=== PATIENT | female | born 1980 | race Caucasian/White ===

== ENCOUNTER 2019-11-14 06:03 | Observation (INO) ==
[2019-11-14 06:37] LABS: Basophils # (auto) 0.02 K/uL (0-0.2); Basophils % (auto) 0.2 %; Eosinophils # (auto) 0.06 K/uL (0-0.5); Eosinophils % (auto) 0.5 %; Hematocrit (blood only) 44.5 % (37-47); Hemoglobin 14.8 g/dL (12.0-16.0); Immature Granulocytes # (auto) 0.03 K/uL (0.00-0.02); Immature Granulocytes % (auto) 0.3 %; Lymphocytes # (auto) 1.02 K/uL (1.2-3.4); Mean Corpuscular Hemoglobin 29.7 pg (25-34); Mean Corpuscular Hgb Conc 33.3 g/dL (32-36); Mean Corpuscular Volume 89.4 fL (80-100); Mean Platelet Volume 8.9 fL (7.4-10.4); Monocytes # (auto) 1.22 K/uL (0.11-0.59); Monocytes % (auto) 10.8 %; Neutrophils # (auto) 8.94 K/uL (1.4-6.5); Neutrophils % (auto) 79.2 %; Platelet Count 207 K/uL (130-400); RDW Standard Deviation 41.9 fL (36.4-46.3); Red Blood Count 4.98 M/uL (4.2-5.4); White Blood Count 11.29 K/uL (4.8-10.8)
[2019-11-14] MEDS ORDERED: ONDANSETRON INJ 2 MG/ML 2 ML VIAL IV STA (06:37)
[2019-11-14] MEDS ORDERED: ACETAMINOPHEN 1,000 MG/100 ML VIAL IV STA (06:37)
[2019-11-14] MEDS ORDERED: HYDROmorphone INJ 0.5 MG/0.5 ML SYR IV PRN (06:37)
[2019-11-14 06:41] LABS: Appearance Urine Cloudy (Clear); Bacteria Urine Automated Negative (Negative); Blood Urine 3+ (Negative); Epithelial Cell Urine Auto >30 /lpf (0-5); Glucose Urine UA Negative (Negative); Ketones Urine 1+ (Negative); Leukocyte Esterase Urine Trace (Negative); Nitrite Urine Negative (Negative); Protein Urine Trace (Negative); RBC Urine Automated >30 /hpf (0-4); Specific Gravity Urine 1.033 (1.000-1.030); Urobilinogen Urine Negative (Negative); pH Urine 5.5 (4.5-7.5)
--- NOTE | 2019-11-14 06:47 | Emergency Department Note ---
History of Present Illness General Chief complaint: Abdominal Pain Stated complaint: right side flank/abd pain Time Seen by Provider: 11/14/19 06:32 Source: patient, RN notes reviewed and old records reviewed Mode of arrival: ambulatory Limitations: no limitations History of Present Illness Provider complaint: Right lower quadrant abd pain Onset (ago): day(s) 3 Location: abdomen Radiation: flank Severity: moderate Pain Consistency: + colicky Maximum Pain Intensity: 7 Current Pain Intensity: 7 Quality: + sharp Relieved By: + immobilization Exacerbated By: + movement Associated symptoms: + nausea/vomiting; no chest pain, no cough, no fever/chills, no headaches and no shortness of breath Treatments prior to arrival: none This is a 39-year-old female who presents emergency department complaint right lower quadrant abdominal pain that has been ongoing for the past 3 days. The patient reports she has not taken anything for the pain. She reports that the pain radiates into her right flank. She denies any chest pain or shortness of breath. The patient reports movement makes the pain much worse. She reports that eating does not do anything to the pain including eating an hour later. She describes the pain as sharp. She has never had abdominal surgery before. She is currently on her period and denies being . Home Medications Home Medications Medication Instructions Recorded Confirmed Type Lactobacillus 1 cap PO UD 08/24/19 11/14/19 History acidophilus-Bifidobac.animalis 31 billion cell capsule ascorbic acid (vitamin C) 500 mg 500 mg PO DAILY 08/24/19 11/14/19 History tablet cholecalciferol (vitamin D3) 25 1,000 unit PO DAILY 08/24/19 11/14/19 History mcg (1,000 unit) tablet citalopram 10 mg tablet 10 mg PO DAILY 08/24/19 11/14/19 History ferrous gluconate 240 mg (27 mg 240 mg PO UD 08/24/19 11/14/19 History iron) tablet Allergies Allergy/AdvReac Type Severity Reaction Status Date / Time Penicillins Allergy Intermediate RASH Verified 11/14/19 06:24 Past Med/Surg History Surgical History H/O dilation and curettage H/O oral surgery Family History Aunt Breast cancer maternal Other Dyslipidemia Hypertension Denies family history of Ovarian cancer Colorectal cancer Social History Feels Safe at Home: Yes Smoking Status: Never smoker Hx Alcohol Use: Yes Physical Activity Frequency: 3-4 Times per Week Review of Systems A total of 10 systems reviewed and were otherwise negative Physical Exam Vital Signs Vital Signs - 24 hr 11/14/19 06:07 11/14/19 07:02 11/14/19 07:49 Temperature 37.4 C Temperature Source Oral Pulse Rate 98 H Pulse Rate [Right Finger] 72 66 Respiratory Rate 18 16 18 Respiratory Effort / Characteristics Non-Labored Spontaneous Non-Labored Spontaneous Respiratory Depth Normal Normal Normal Respiratory Pattern Regular Blood Pressure 114/81 Blood Pressure [Right Arm] 129/70 112/70 Blood Pressure Mean 92 Blood Pressure Mean [Right Arm] 89 84 Blood Pressure Position [Right Arm] Lying Lying Pulse Oximetry 96 98 97 Oxygen Delivery Method Room Air Room Air Room Air Sepsis Recent Fever Within 48 Hours No Sepsis Action Taken by Nursing No Action Required 11/14/19 09:00 11/14/19 09:58 11/14/19 10:07 Temperature 37 C Temperature Source Oral Pulse Rate Pulse Rate [Right Finger] 75 80 Respiratory Rate 18 18 Respiratory Effort / Characteristics Non-Labored Non-Labored Spontaneous Respiratory Depth Normal Normal Respiratory Pattern Regular Blood Pressure Blood Pressure [Right Arm] 122/73 110/71 Blood Pressure Mean Blood Pressure Mean [Right Arm] 89 84 Blood Pressure Position [Right Arm] Lying Lying Pulse Oximetry 97 98 Oxygen Delivery Method Room Air Room Air Sepsis Recent Fever Within 48 Hours Sepsis Action Taken by Nursing VITAL SIGNS - Vital signs and nursing notes were reviewed. GENERAL - 39-year-old female appearing stated age who is in no acute distress. Communicates well with provider and answers questions appropriately. SKIN - Without rashes. HEAD - NC/AT. EYES - PERRL with EOMI bilaterally. Sclera anicteric. Palpebral conjunctiva pink and moist with no injection noted. EARS - No deformities of external structures noted on gross examination bila terally. No pain elicited with palpation of the tragus bilaterally. External auditory canals without discharge or otorrhea. Tympanic membranes pearly roberts without retraction or bulging. No fluid or purulent material visualized behind the TM. Handle of malleus, umbo, cone of light, pars tensa/flaccid all easily visualized. NOSE - Midline and without cyanosis. No epistaxis or purulent drainage noted. Septum midline without deviation or septal hematoma noted. MOUTH/OROPHARYNX - Without perioral cyanosis. Buccal mucosa pink and moist and without leukoplakia. Tongue midline with equal elevation of palate bilaterally. No tonsillar hypertrophy, erythema, or exudates noted. dentition noted. NECK - Neck with FROM. Supple to palpation. lymphadenopathy noted. No nuchal rigidity. LUNGS - Chest wall symmetric without accessory muscle use, intercostals retractions, or central cyanosis. Normal vesicular breath sounds CTA B/L. No wheezes, rales, or rhonchi appreciated. CARDIAC - RRR with S1/S2. No murmur, rubs, or gallops appreciated. ABDOMEN - Abdominal contour without pulsations or visible masses. BS normoactive all four quadrants. + tenderness, + guarding, + rebound RLQ, No palpable masses, hepatosplenomegaly, or ascites noted. EXTREMITIES - No clubbing or peripheral cyanosis. No pretibial edema present. +3/5 radial, posterior tibial, and dorsalis pedis pulses palpated throughout. +5/5 strength noted in UE/LE bilaterally. NEUROLOGIC - Cranial nerves II through XII grossly intact. Sensory intact to light touch throughout. Patellar reflexes +2/4. PSYCH - A&Ox3 and cooperates fully with examiner. Pt is very pleasant and interacts well with examiner. Course Administered Medications Hydromorphone HCl (Dilaudid) 0.5 mg IV Q15M PRN PRN Reason: Pain Stop: 11/28/19 06:36 Last Admin: 11/14/19 06:46 Dose: 0.5 mg Documented by: [id number] Ioversol (Optiray 320 100ml) 120 ml IV ONCE PRN PRN Reason: Interaction Checking Stop: 11/18/19 07:19 Last Admin: 11/14/19 07:20 Dose: 120 ml Documented by: [id number] Discontinued Medications Acetaminophen (Ofirmev) 1,000 mg in 100 mls @ 400 mls/hr IV NOW STA Stop: 11/14/19 06:51 Last Infusion: 11/14/19 07:11 Dose: 0 mls/hr Documented by: [id number] Admin: 11/14/19 06:46 Dose: 400 mls/hr Documented by: [id number] Cefoxitin Sodium (Mefoxin) 2,000 mg in 60 mls @ 100 mls/hr IV NOW STA Stop: 11/14/19 08:16 Last Infusion: 11/14/19 08:36 Dose: 0 mls/hr Documented by: [id number] Admin: 11/14/19 07:49 Dose: 100 mls/hr Documented by: [id number] Ondansetron HCl (Zofran) 4 mg IV NOW STA Stop: 11/14/19 06:38 Last Admin: 11/14/19 06:45 Dose: 4 mg Documented by: [id number] Medical Decision Making Differential Diagnosis Appendicitis, ovarian cyst, ovarian torsion, ectopic , TOA, PID, infections, diverticulitis, UTI, obstruction, mesenteric ischemia, aortic pathology, inflammatory bowel disease, renal colic, PUD, pancreatitis, biliary pathology, hernia, volvulus, constipation, as well as other pathologies. Medical Records Attestation: I reviewed the patient's medical records. Home Medications Current Medication List: was personally reviewed by me Laboratory Data Attestation: I reviewed the patient's lab results. Result diagrams: 11/14/19 06:28 11/14/19 06:28 Lab Results 11/14/19 11/14/19 11/14/19 Range/Units 06:28 06:28 06:29 WBC 11.29 H (4.8-10.8) K/uL RBC 4.98 (4.2-5.4) M/uL Hgb 14.8 (12.0-16.0) g/dL Hct 44.5 (37-47) % MCV 89.4 (80-100) fL MCH 29.7 (25-34) pg MCHC 33.3 (32-36) g/dL RDW Std Deviation 41.9 (36.4-46.3) fL RDW Coeff of Nava 13.0 (11.5-14.5) % Plt Count 207 (130-400) K/uL MPV 8.9 (7.4-10.4) fL Immature Gran % (Auto) 0.3 % Neut % (Auto) 79.2 % Lymph % (Auto) 9.0 % Hart % (Auto) 10.8 % Eos % (Auto) 0.5 % Baso % (Auto) 0.2 % Immature Gran # (Auto) 0.03 H (0.00-0.02) K/uL Neut # (Auto) 8.94 H (1.4-6.5) K/uL Lymph # (Auto) 1.02 L (1.2-3.4) K/uL Hart # (Auto) 1.22 H (0.11-0.59) K/uL Eos # (Auto) 0.06 (0-0.5) K/uL Baso # (Auto) 0.02 (0-0.2) K/uL Sodium 138 (136-145) mmol/L Potassium 3.5 (3.5-5.1) mmol/L Chloride 105 (98-107) mmol/L Carbon Dioxide 26 (21-32) mmol/L Anion Gap 7.0 (3-11) BUN 13 (7-18) mg/dl Creatinine 1.00 (0.6-1.2) mg/dl Est Cr Clr Drug Dosing 86.6 ml/min Est GFR ( Amer) 82.8 Est GFR (Non-Af Amer) 71.4 BUN/Creatinine Ratio 13.0 (10-20) Glucose 93 (70-99) mg/dl Calcium 8.8 (8.5-10.1) mg/dl Total Bilirubin 1.9 H (0.2-1) mg/dl AST 14 L (15-37) U/L ALT 22 (12-78) U/L Alkaline Phosphatase 79 (45-117) U/L Total Protein 7.2 (6.4-8.2) gm/dl Albumin 3.6 (3.4-5.0) gm/dl Globulin 3.6 (2.5-4.0) gm/dl Albumin/Globulin Ratio 1.0 (0.9-2) Lipase 106 (73-393) U/L Urine Color Ryann Urine Appearance Cloudy A (Clear) Urine pH 5.5 (4.5-7.5) Ur Specific [place] 1.033 H (1.000-1.030) Urine Protein Trace H (Negative) Urine Glucose (UA) Negative (Negative) Urine Ketones 1+ H (Negative) Urine Blood 3+ H (Negative) Urine Nitrite Negative (Negative) Urine Bilirubin Negative (Negative) Urine Urobilinogen Negative (Negative) Ur Leukocyte Esterase Trace H (Negative) Urine WBC (Auto) 1-5 (0-5) /hpf Urine RBC (Auto) >30 H (0-4) /hpf U Hyaline Cast (Auto) 1-5 (0-5) /lpf U Epithel Cells (Auto) >30 H (0-5) /lpf Urine Bacteria (Auto) Negative (Negative) POC Ur Test (NEG) 11/14/19 Range/Units 06:30 WBC (4.8-10.8) K/uL RBC (4.2-5.4) M/uL Hgb (12.0-16.0) g/dL Hct (37-47) % MCV (80-100) fL MCH (25-34) pg MCHC (32-36) g/dL RDW Std Deviation (36.4-46.3) fL RDW Coeff of Nava (11.5-14.5) % Plt Count (130-400) K/uL MPV (7.4-10.4) fL Immature Gran % (Auto) % Neut % (Auto) % Lymph % (Auto) % Hart % (Auto) % Eos % (Auto) % Baso % (Auto) % Immature Gran # (Auto) (0.00-0.02) K/uL Neut # (Auto) (1.4-6.5) K/uL Lymph # (Auto) (1.2-3.4) K/uL Hart # (Auto) (0.11-0.59) K/uL Eos # (Auto) (0-0.5) K/uL Baso # (Auto) (0-0.2) K/uL Sodium (136-145) mmol/L Potassium (3.5-5.1) mmol/L Chloride (98-107) mmol/L Carbon Dioxide (21-32) mmol/L Anion Gap (3-11) BUN (7-18) mg/dl Creatinine (0.6-1.2) mg/dl Est Cr Clr Drug Dosing ml/min Est GFR ( Amer) Est GFR (Non-Af Amer) BUN/Creatinine Ratio (10-20) Glucose (70-99) mg/dl Calcium (8.5-10.1) mg/dl Total Bilirubin (0.2-1) mg/dl AST (15-37) U/L ALT (12-78) U/L Alkaline Phosphatase (45-117) U/L Total Protein (6.4-8.2) gm/dl Albumin (3.4-5.0) gm/dl Globulin (2.5-4.0) gm/dl Albumin/Globulin Ratio (0.9-2) Lipase (73-393) U/L Urine Color Urine Appearance (Clear) Urine pH (4.5-7.5) Ur Specific [place] (1.000-1.030) Urine Protein (Negative) Urine Glucose (UA) (Negative) Urine Ketones (Negative) Urine Blood (Negative) Urine Nitrite (Negative) Urine Bilirubin (Negative) Urine Urobilinogen (Negative) Ur Leukocyte Esterase (Negative) Urine WBC (Auto) (0-5) /hpf Urine RBC (Auto) (0-4) /hpf U Hyaline Cast (Auto) (0-5) /lpf U Epithel Cells (Auto) (0-5) /lpf Urine Bacteria (Auto) (Negative) POC Ur Test NEG (NEG) Imaging Data Radiologist's Impression: [place], [place] [phone] CT Scan Report Patient: ZIA ROMEROINEAdmit Date: 11/14/19 MR#: [id number]: 68 [address] FENG Acct ID:[id number]: Date: 1980[facility] Zip: [place] [address] Age: 39Location: ED Sex: F Room/Bed: Att Phy:Diagnosis: right side flank/abd pain Bree Phy: Andres Montemayor MDService Date: 11/14/19 Fam Phy:Interpreting Phy: Antonio Sauceda MD Admit Phy: Ordering Phy: Amado Davila MD cc: ~ CT abd pelvis IV con only CLINICAL HISTORY: Pt c/o RLQ abd pain COMPARISON STUDY: None. TECHNIQUE: The patient was scanned in a dynamic helical fashion during intravenous administration of 120 cc of Optiray 320 A dose lowering technique was utilized adhering to the principles of ALARA. CT DOSE: 795.09 mGycm FINDINGS: Lower chest: The heart is normal in size and configuration, without pericardial effusion. The lung bases and pleural spaces are clear. Liver: The contrast-enhanced liver is normal in size, contour, and attenuation. There is no intrahepatic biliary ductal dilatation. The hepatic veins and portal veins are patent. Gallbladder: Unremarkable. Spleen: Normal in size and attenuation. Pancreas: Unremarkable. Adrenal glands: Unremarkable. Kidneys: There is symmetric renal cortical enhancement. The kidneys are normal in size without hydronephrosis. Bowel: There are no transition zones to indicate bowel obstruction. There is no evidence of acute diverticulitis. There is a thick-walled appendix with significant periappendiceal stranding. There is a suspected 2 cm appendiceal tip abscess. Peritoneum: There is no intraperitoneal free air or abdominal ascites. Vasculature: The abdominal aorta is normal in course and caliber. Adenopathy: None. Pelvic viscera: There are multiple bilateral ovarian follicles. Skeletal structures: No destructive osseous lesions are seen. IMPRESSION: 1. CT findings indicative of acute appendicitis with a suspected 2 cm periappendiceal tip abscess. Surgical consultation is recommended. ACT 112: Negative or not required by law. Electronically signed by: Antonio Sauceda M.D. 11/14/2019 7:38 AM Dictated: 11/14/19732 Transcribed: 11/14/19 0733 [facility] Narrative Patient was seen and evaluated as above in room C4. Review was performed of nursing notes and vital signs. I did review pertinent previous visits and patient history. After obtaining a thorough history and physical examination the above work up was performed. This is a 39-year-old female who presents emergency department complaining of right lower quadrant abdominal pain that has been ongoing for the past 3 days. Patient has positive guarding as well as a Rovsing sign. She does have an elevation in her white blood cell count 11.29. CAT scan is consistent with acute appendicitis. She was started on Mefoxin. Case was discussed with the surgeon who took the patient to the operating room. An order was placed for continuous cardiac monitoring. The monitor shows a rate of 98 with Normal Sinus rhythm. The patient was evaluated during the global COVID-19 pandemic, and that diagnosis was suspected/considered upon their initial presentation. Their evaluation, treatment and testing was consistent with current guidelines for patients who present with complaints or symptoms that may be related to COVID- 19. Impression & Plan Abdominal pain, Acute appendicitis Discharge Plan Visit Data *Final* Discharge Date/Time: 11/14/19 09:58 Chief Complaint: Abdominal Pain Stated Complaint: right side flank/abd pain ED Provider: Amado Davila Discharge Problem: Abdominal pain, Acute appendicitis Patient Disposition: Still a Patient Discharge Instructions Interventions: ED Discharge Assessment Last Done: 11/14/19 09:58 Discharge Problem: Abdominal pain Qualifiers: Abdominal location: right lower quadrant Qualified Code(s): R10.31 - Right lower quadrant pain Acute appendicitis Qualifiers: Acute appendicitis type: unspecified acute appendicitis type Qualified Code(s): K35.80 - Unspecified acute appendicitis
[2019-11-14 06:53] LABS: Albumin Level 3.6 gm/dl (3.4-5.0); Calcium 8.8 mg/dl (8.5-10.1); Creatinine Clr Calc Pharmacy 86.6 ml/min; Est GFR (African American) 82.8; Est GFR (Non-African American) 71.4; Potassium 3.5 mmol/L (3.5-5.1)
[2019-11-14 06:56] LABS: Bilirubin,Total 1.9 mg/dl (0.2-1); Globulin 3.6 gm/dl (2.5-4.0); Total Protein 7.2 gm/dl (6.4-8.2)
[2019-11-14 06:57] LABS: Bilirubin Urine Negative (Negative); Color Urine Amber; Ictotest Urine Negative (Negative)
[2019-11-14] MEDS ORDERED: IOVERSOL 100ml IV PRN (07:20)
--- NOTE | 2019-11-14 07:39 | CT Scan Report ---
CT abd pelvis IV con only CLINICAL HISTORY: Pt c/o RLQ abd pain COMPARISON STUDY: None. TECHNIQUE: The patient was scanned in a dynamic helical fashion during intravenous administration of 120 cc of Optiray 320 A dose lowering technique was utilized adhering to the principles of ALARA. CT DOSE: 795.09 mGycm FINDINGS: Lower chest: The heart is normal in size and configuration, without pericardial effusion. The lung ba ses and pleural spaces are clear. Liver: The contrast-enhanced liver is normal in size, contour, and attenuation. There is no intrahepa tic biliary ductal dilatation. The hepatic veins and portal veins are patent. Gallbladder: Unremarkable. Spleen: Normal in size and attenuation. Pancreas: Unremarkable. Adrenal glands: Unremarkable. Kidneys: There is symmetric renal cortical enhancement. The kidneys are normal in size without hydron ephrosis. Bowel: There are no transition zones to indicate bowel obstruction. There is no evidence of acute div erticulitis. There is a thick-walled appendix with significant periappendiceal stranding. There is a suspected 2 cm appendiceal tip abscess. Peritoneum: There is no intraperitoneal free air or abdominal ascites. Vasculature: The abdominal aorta is normal in course and caliber. Adenopathy: None. Pelvic viscera: There are multiple bilateral ovarian follicles. Skeletal structures: No destructive osseous lesions are seen. IMPRESSION: 1. CT findings indicative of acute appendicitis with a suspected 2 cm periappendiceal tip abscess. Gómez rgical consultation is recommended. ACT 112: Negative or not required by law. Electronically signed by: Antonio Sauceda M.D. 11/14/2019 7:38 AM
[2019-11-14] MEDS ORDERED: cefOXitin 2,000 MG/60 ML BAG IV STA (07:41)
--- NOTE | 2019-11-14 08:14 | History & Physical Report ---
Date of Service November 14, 2019 Assessment & Plan (1) Acute appendicitis: This is a 39yF with no significant PMH who presents to the [facility] ED on 11/14/19 with complaints of abdominal pain. Workup in the ED shows WBC of [address] scan findings concerning for acute appendicitis with 2cm periappendiceal tip abscess. Patient is tender to palpation in the RLQ. Please keep patient NPO with IVF and start IV abx. We will place patient on the OR schedule for laparoscopic appendectomy. Dr. Burnett will be by to see the patient. History of Present Illness Primary Care Provider: Andres Montemayor MD This is a 39yF with no significant PMH who presents to the [facility] ED on 11/14/19 with complaints of abdominal pain. The patient reports her pain started 3 days ago and was associated with nausea and abdominal bloat. She thought it was gas pains, but was unable to pass flatus or burp to relieve it. Yesterday her nausea subsided some, but her pain remained persistent and was located more in the right lower abdomen. She could not get comfortable and due to the severity of the pain she reported to the ED this AM. In the ED patient's WBC: 11 and she underwent a ct a/p that revealed findings concerning for acute appendicitis with a 2cm periappendiceal tip abscess. Patient endorses low grade temps and chills and has no appetite. She denies any vomiting, change in bowel habits, chest pain or shortness of breath. She last ate some toast and rotisserie chicken around 5pm last night. She has not had any prior surgeries to her abdomen. Allergies Allergy/AdvReac Type Severity Reaction Status Date / Time Penicillins Allergy Intermediate RASH Verified 11/14/19 06:24 Home Medications Home Medications Medication Instructions Recorded Confirmed Type Lactobacillus 1 cap PO UD 08/24/19 11/14/19 History acidophilus-Bifidobac.animalis 31 billion cell capsule ascorbic acid (vitamin C) 500 mg 500 mg PO DAILY 08/24/19 11/14/19 History tablet cholecalciferol (vitamin D3) 25 1,000 unit PO DAILY 08/24/19 11/14/19 History mcg (1,000 unit) tablet citalopram 10 mg tablet 10 mg PO DAILY 08/24/19 11/14/19 History ferrous gluconate 240 mg (27 mg 240 mg PO UD 08/24/19 11/14/19 History iron) tablet Past Med/Surg History Surgical History H/O dilation and curettage H/O oral surgery Family History Aunt Breast cancer maternal Other Dyslipidemia Hypertension Denies family history of Ovarian cancer Colorectal cancer Social History Feels Safe at Home: Yes Smoking Status: Never smoker Hx Alcohol Use: Yes Physical Activity Frequency: 3-4 Times per Week Review of Systems Constitutional: + fever (subjective low grade temps at home), + chills and + anorexia Respiratory: no dyspnea Cardiovascular: no chest pain Gastrointestinal: + abdominal pain (mostly in the right lower quadrant), + bloating and + nausea; no vomiting Physical Exam Physical Exam: awake/alert Respiratory: normal respiratory effort Gastrointestinal (Abdomen): Percussion/Palpation: + abdomen tender (ttp in the RLQ), + guarding (when palpated in the RLQ) and abdomen soft Results & Data Results & Data ([facility]) Vital Signs (Past 12 Hours) Vital Signs Temp Pulse Pulse Resp BP BP Pulse Ox 11/14/19 07:49 66 18 112/70 97 11/14/19 07:02 72 16 129/70 98 11/14/19 06:07 37.4 C 98 H 18 114/[address] abd pelvis IV con only CLINICAL HISTORY: Pt c/o RLQ abd pain COMPARISON STUDY: None. TECHNIQUE: The patient was scanned in a dynamic helical fashion during int ravenous administration of 120 cc of Optiray 320 A dose lowering technique was utilized adhering to the principles of ALARA. CT DOSE: 795.09 mGycm FINDINGS: Lower chest: The heart is normal in size and configuration, without pericardial effusion. The lung bases and pleural spaces are clear. Liver: The contrast-enhanced liver is normal in size, contour, and attenuation. There is no intrahepatic biliary ductal dilatation. The hepatic veins and portal veins are patent. Gallbladder: Unremarkable. Spleen: Normal in size and attenuation. Pancreas: Unremarkable. Adrenal glands: Unremarkable. Kidneys: There is symmetric renal cortical enhancement. The kidneys are normal in size without hydronephrosis. Bowel: There are no transition zones to indicate bowel obstruction. There is no evidence of acute diverticulitis. There is a thick-walled appendix with significant periappendiceal stranding. There is a suspected 2 cm appendiceal tip abscess. Peritoneum: There is no intraperitoneal free air or abdominal ascites. Vasculature: The abdominal aorta is normal in course and caliber. Adenopathy: None. Pelvic viscera: There are multiple bilateral ovarian follicles. Skeletal structures: No destructive osseous lesions are seen. IMPRESSION: 1. CT findings indicative of acute appendicitis with a suspected 2 cm periappendiceal tip abscess. Surgical consultation is recommended. ACT 112: Negative or not required by law. Electronically signed by: Antonio Sauceda M.D. 11/14/2019 7:38 AM PG Care Time/CCT Total # of Minutes Spent Total Time Spent with Patient: Total time spent is greater than 50% in coordination of care (as documented) at patient's floor/unit and/or counseling patient: Coding Level of Care Code 76779 OBS Care - Level 3 Diagnoses Acute appendicitis K35.80
--- NOTE | 2019-11-14 09:13 | History & Physical Bridge Note ---
Date of Service November 14, 2019 History & Physical Bridge Note I have examined the patient, reviewed the History & Physical and in the interval since the performance of the History & Physical I have noted the following changes of clinical significance: no changes noted Evaluated the patient in the ER where she has tenderness in the right lower quadrant consistent with acute appendicitis seen by CT scan recommended for her to undergo a laparoscopic appendectomy possible open and we will proceed and an hour or so due to the schedule in the OR Risk and complication of the procedure were explained to the patient including bleeding infection injury to other organs and she would like to proceed accordingly Other options of therapy were discussed with the patient including IV antibiotics and follow-up and possible surgery and I feel with a small abscess and acute appendicitis I to have surgery now and she agrees
--- NOTE | 2019-11-14 11:00 | Anesthesiology Consultation ---
Date of Service November 14, 2019 Assessment & Plan Chart Review Chart Review: Acceptable Risk for Surgery Consults Requested none History Surgery Operation Date: 11/14/19 12:30 Proposed Procedures p Laparoscopic Appendectomy - Bon Burnett MD Height/Weight Height: 5 ft 8 in Weight: 84 kg Allergies Allergy/AdvReac Type Severity Reaction Status Date / Time Penicillins Allergy Intermediate RASH Verified 11/14/19 06:24 Medications Home Medications Medication Instructions Recorded Confirmed Last Taken Lactobacillus 1 cap PO UD 08/24/19 11/14/19 Unknown acidophilus-Bifidobac.animalis 31 billion cell capsule ascorbic acid (vitamin C) 500 mg 500 mg PO DAILY 08/24/19 11/14/19 Unknown tablet cholecalciferol (vitamin D3) 25 1,000 unit PO DAILY 08/24/19 11/14/19 Unknown mcg (1,000 unit) tablet citalopram 10 mg tablet 10 mg PO DAILY 08/24/19 11/14/19 Unknown ferrous gluconate 240 mg (27 mg 240 mg PO UD 08/24/19 11/14/19 Unknown iron) tablet Active Medications Generic Name Dose Route Start Last Admin Trade Name Freq PRN Reason Stop Dose Admin Hydromorphone HCl 0.5 mg 11/14/19 06:37 11/14/19 06:46 Dilaudid IV 11/28/19 06:36 0.5 mg Q15M PRN Administration Pain Ioversol 120 ml 11/14/19 07:20 11/14/19 07:20 Optiray 320 100ml IV 11/18/19 07:19 120 ml ONCE PRN Administration Interaction Checking NPO Date Last Intake of Fluids: 11/13/19 Time Last Intake of Fluids: 22:30 Last Intake of Fluids Comment: sip of water 0500 Date Last Intake of Solids: 11/13/19 Time Last Intake of Solids: 17:00 Past Family History Family History Aunt Breast cancer maternal Other Dyslipidemia Hypertension Denies family history of Ovarian cancer Colorectal cancer Past Surgical History Surgical History H/O dilation and curettage H/O oral surgery Social History Smoking Status: Never smoker Hx Alcohol Use: Yes Physical Exam Vital Signs Last Vital Signs Temp 37 C 11/14/19 10:07 Pulse 80 11/14/19 10:07 Resp 18 11/14/19 10:07 BP 110/71 11/14/19 10:07 Pulse Ox 98 11/14/19 10:07 Testing Laboratory Results 11/14/19 06:28 11/14/19 06:28 Urine Color Ryann 11/14/19 06:29 Urine Appearance Cloudy (Clear) A 11/14/19 06: Urine pH 5.5 (4.5-7.5) 11/14/19 06:29 Ur Specific [place] 1.033 (1.000-1.030) H 11/14/19 06:29 Urine Protein Trace (Negative) H 11/14/19 06:29 Urine Glucose (UA) Negative (Negative) 11/14/19 06: Urine Ketones 1+ (Negative) H 11/14/19 06:29 Urine Nitrite Negative (Negative) 11/14/19 06:29 Ur Leukocyte Esterase Trace (Negative) H 11/14/19 06:29 Urine WBC (Auto) 1-5 /hpf (0-5) 11/14/19 06:29 Urine RBC (Auto) >30 /hpf (0-4) H 11/14/19 06:29 U Hyaline Cast (Auto) 1-5 /lpf (0-5) 11/14/19 06:29 U Epithel Cells (Auto) >30 /lpf (0-5) H 11/14/19 06:29 Urine Bacteria (Auto) Negative (Negative) 11/14/19 06:29
[2019-11-14] MEDS ORDERED: METOCLOPRAMIDE HCL INJ 5 MG/ML 2 ML VIAL IV PRN (11:01)
[2019-11-14] MEDS ORDERED: ATROPINE SULFATE 0.1 MG/ML 10ML SYR IV PRN (11:01)
[2019-11-14] MEDS ORDERED: KETOROLAC 30 MG/ML VIAL IV PRN (11:01)
[2019-11-14] MEDS ORDERED: PROMETHAZINE HCL 12.5 MG in SODIUM CHLORIDE 0.9% 50 ML IV PRN (11:01)
[2019-11-14] MEDS ORDERED: HYDROmorphone INJ 2 MG/ML SYR/VIAL IV PRN (11:01)
[2019-11-14] MEDS ORDERED: ONDANSETRON INJ 2 MG/ML 2 ML VIAL IV PRN ×2 (11:01→16:59)
[2019-11-14] MEDS ORDERED: ePHEDrine sulfate 50 MG/ML AMP IV PRN (11:01)
[2019-11-14] MEDS ORDERED: LIDOCAINE/EPINEPHRINE 1% 20 ML VIAL ONE (11:45)
[2019-11-14] MEDS ORDERED: fentaNYL citrate 100 MCG/2 ML VIAL ONE ×3 (11:54→13:42)
[2019-11-14] MEDS ORDERED: MIDAZOLAM HCL 1 MG/ML 2ML VIAL ONE (11:54)
[2019-11-14] MEDS ORDERED: LIDOCAINE HCL 2% 2 ML VIAL/AMP(20MG/ML) INFIL ONE (13:26)
[2019-11-14] MEDS ORDERED: DEXAMETHASONE SOD INJ 4 MG/ML VIAL ONE (13:26)
[2019-11-14] MEDS ORDERED: ROCURONIUM BROMIDE 10 MG/ML 5 ML VIAL ONE ×3 (13:26)
[2019-11-14] MEDS ORDERED: PROPOFOL IV EMULSION 10 MG/ML 20 ML VIAL IV ONE (13:26)
[2019-11-14] MEDS ORDERED: NEOSTIGMINE METHYLSULFATE 5 MG/5 ML SYR ONE (13:26)
[2019-11-14] MEDS ORDERED: ONDANSETRON INJ 2 MG/ML 2 ML VIAL ONE (13:26)
[2019-11-14] MEDS ORDERED: SUCCINYLCHOLINE CHLORIDE 20 MG/ML 10 ML VIAL IV ONE (13:26)
[2019-11-14] MEDS ORDERED: GLYCOPYRROLATE 0.2 MG/ML VIAL ONE (13:26)
--- NOTE | 2019-11-14 13:36 | Post Operative Brief Note ---
PG Immediate Post Op with CF Date of Surgery November 14, 2019 Pre & Post Diagnosis Operation Date: 11/14/19 12:30 Pre-Op Diagnosis: acute appendicitis Post-Op Diagnosis: acute appendicitis I identified the patient and participated in the time-out.: Yes Procedure Operation Date: 11/14/19 12:30 Actual Procedures p Laparoscopic Appendectomy(Not Applicable) - Bon Burnett MD Surgeon Bon Burnett MD Gm Video judy watkins Estimated Blood Loss 10 Findings Consistent with Post-Op Diagnosis Specimens Specimen Description: A: appendix Drains Wilfred Drain (19 FR)
--- NOTE | 2019-11-14 13:45 | Operative Report ---
PG Post Operative Report Pre & Post Diagnosis Operation Date: 11/14/19 12:30 Pre-Op Diagnosis: acute appendicitis Post-Op Diagnosis: acute appendicitis I identified the patient and participated in the time-out.: Yes Procedure Operation Date: 11/14/19 12:30 Actual Procedures p Laparoscopic Appendectomy(Not Applicable) - Bon Burnett MD The patient was brought into the operating room theater general endotracheal anesthesia waiting 20 minutes for coronal protocol and the abdomen was prepped byline solution and properly draped patient was identified timeout was had made a small incision supraumbilically near where she had the residual scarring from jewelry umbilical area sufficient to offer for a Veress needle followed by CO2 followed by 5 mm trocar point of interest back to no injury then a 5 and direct visualization I placed a 5 mm right upper quadrant trocar with preemptive local analgesia and this we then looked down towards the right lower quadrant where the omentum was draped out in that area we were able to free it up I was able to elevate the cecum but I could not see the appendix. At this point I converted the 5 mm trocar in the umbilical area by enlarging the incision dilating the track with 11 mm trocar at this 5 mm was then placed in the left lower quadrant direct visualization the camera was placed in the left lower quadrant with this I was able then to elevate the cecal cap and dissected out bluntly in the retroperitoneal area and lateral attachments which seem to be a lot of acute and chronic fibrosis then but this maneuver I was able to see the midportion with the appendix which appeared to be dilated but normal we then elevated this up sufficiently that I created a window between the appendix and the cecum sufficient to place a blue staple and fired across the appendix was then elevated significant fibrosis to the appendix itself was taken down by sharp dissection but we were able to use 5 mm and 10 mm clips to divide the mesial mesoappendix once we had freed this up down towards the tip there was an area and seen there was leak draped over by the tip but as we elevated that the appendix was able to be completely removed I do not see any abscess in that area. A significant amount of scar tissue was present. The appendix was placed in an Endopouch and then taken out intact through the epigastric port site I elected to drain that area with a Wilfred drain which was apparent from the left lower quadrant taken up the right upper quadrant position in her right gutter down the pelvis attached to skin with 2-0 silk we had irrigated the abdomen quite considerably patient in reverse Trendelenburg to see suctioned out the pelvis. 0 Vicryl suture was used just around the umbilical area interrupted times three 4-0 Monocryl Steri-Strips applied procedure was tolerated well by the patient estimated blood loss approximately 10 cc addendumB Yuval MENDOZA was present the whole time and helped the retraction exposure camera work and wound closure Surgeon Bon Burnett MD Workers Compensation Adjuster b yuval mendoza Estimated Blood Loss 10 Findings Consistent with Post-Op Diagnosis Specimens appendix Description of Procedure merda I attest to the content of the Intraoperative Record and any orders documented therein. Any exceptions are noted below.
[2019-11-14] MEDS: fentaNYL citrate 100 MCG/2 ML VIAL IV PRN ×2 (14:20→14:25)
--- NOTE | 2019-11-14 14:32 | Anesthesiology Progress Note ---
Date of Service November 14, 2019 Anesthesia Post Procedure Vital Signs Vital Signs: Temp Pulse Pulse Resp BP BP Pulse Ox 11/14/19 10:07 37 C 80 18 110/71 98 11/14/19 09:00 75 18 122/73 97 11/14/19 07:49 66 18 112/70 97 11/14/19 07:02 72 16 129/70 98 11/14/19 06:07 37.4 C 98 H 18 114/81 96 Transfer of Care Handoff Completed per policy Notes Mental Status: alert / awake / arousable and participated in evaluation Patient Amnestic to Procedure: Yes Nausea / Vomiting: adequately controlled Pain: adequately controlled Airway Patency, RR, SpO2: stable & adequate BP & HR: stable & adequate Hydration State: stable & adequate Anesthetic Complications: no major complications apparent
[2019-11-14] MEDS: LACTATED RINGER'S 1,000 ML IV SCH ×2 (15:20→19:09)
[2019-11-14] MEDS ORDERED: OXYCODONE HCL IR 5 MG TAB (IMMEDIATE RELEASE) PO PRN (15:31)
[2019-11-14] MEDS: ACETAMINOPHEN 1,000 MG/100 ML VIAL IV SCH ×2 (16:31→23:52)
[2019-11-14] MEDS: cefOXitin 2,000 MG in DEXTROSE 5% 50 ML IV SCH ×2 (17:02→21:57)
[2019-11-14] MEDS ORDERED: Nursing to Pharmacy Communication ONE (17:21)
[2019-11-14] MEDS: MoRPHine SULFATE 2 MG/ML CARP IV PRN (19:51)
[2019-11-14] MEDS: CITALOPRAM 20 MG TAB PO SCH (20:08)
[2019-11-15] MEDS: MoRPHine SULFATE 2 MG/ML CARP IV PRN (04:22)
[2019-11-15] MEDS: cefOXitin 2,000 MG in DEXTROSE 5% 50 ML IV SCH ×4 (04:33→21:10)
[2019-11-15 06:17] LABS: Basophils # (auto) 0.01 K/uL (0-0.2); Basophils % (auto) 0.1 %; Eosinophils # (auto) 0.05 K/uL (0-0.5); Eosinophils % (auto) 0.5 %; Hematocrit (blood only) 36.5 % (37-47); Hemoglobin 12.2 g/dL (12.0-16.0); Immature Granulocytes # (auto) 0.03 K/uL (0.00-0.02); Immature Granulocytes % (auto) 0.3 %; Lymphocytes # (auto) 1.11 K/uL (1.2-3.4); Lymphocytes % (auto) 10.6 %; Mean Corpuscular Volume 89.9 fL (80-100); Mean Platelet Volume 8.8 fL (7.4-10.4); Monocytes # (auto) 1.28 K/uL (0.11-0.59); Monocytes % (auto) 12.2 %; Neutrophils # (auto) 7.98 K/uL (1.4-6.5); Neutrophils % (auto) 76.3 %; Platelet Count 191 K/uL (130-400); RDW Coefficient of Variation 13.1 % (11.5-14.5); RDW Standard Deviation 42.3 fL (36.4-46.3); Red Blood Count 4.06 M/uL (4.2-5.4); White Blood Count 10.46 K/uL (4.8-10.8)
[2019-11-15 06:23] LABS: Mean Corpuscular Hgb Conc 33.4 g/dL (32-36)
[2019-11-15] MEDS: ACETAMINOPHEN 1,000 MG/100 ML VIAL IV SCH (07:30)
[2019-11-15] MEDS: LACTOBACILLUS ACIDOPHILUS (FLORANEX) TAB PO SCH (08:16)
[2019-11-15] MEDS ORDERED: CITALOPRAM 20 MG TAB PO SCH (09:00)
[2019-11-15] MEDS ORDERED: OXYCODONE/ACETAMINOPHEN 5mg/325mg TAB PO PRN (09:38)
--- NOTE | 2019-11-15 09:38 | Surgery Progress Note ---
Date of Service November 15, 2019 Assessment & Plan (1) Acute appendicitis: POD#1 laparoscopic appendectomy Pt with some pain, but is overall improving Will keep today for pain control Plan to discharge tomorrow with DANI drain in place. Will need DANI drain teaching prior to discharge Will plan to dispo on 5 more days po abx Pt seen and examined with Dr. Lex Hidalgo surgery covering over the weekend Subjective Pt feeling okay today. Has a little more soreness than she expected, but it is getting better and more managable. She is tolerating a diet without issues. Physical Exam Physical Exam: awake/alert Respiratory: normal respiratory effort Gastrointestinal (Abdomen): Inspection/Auscultation: + abdominal surgical incision (c/d/i) and + abdominal surgical drain present (DANI with serosang output) Results & Data Vital Signs (Past 12 Hours) Vital Signs Temp Pulse Resp BP Pulse Ox 11/15/19 07:09 36.8 C 63 16 118/69 96 11/15/19 03:26 36.8 C 72 18 100/65 96 11/14/19 23:31 37.7 C H 71 18 113/65 96 PG Care Time/CCT Total # of Minutes Spent Total Time Spent with Patient: Total time spent is greater than 50% in coordination of care (as documented) at patient's floor/unit and/or counseling patient: Coding Level of Care Code None Diagnoses Acute appendicitis K35.80 Acute appendicitis type: unspecified acute appendicitis type (1) Acute appendicitis Acute appendicitis type: unspecified acute appendicitis type Qualified Code(s): K35.80 - Unspecified acute appendicitis
[2019-11-15] MEDS: OXYCODONE/ACETAMINOPHEN 5mg/325mg TAB PO PRN ×4 (09:46→23:32)
[2019-11-15] MEDS: LACTATED RINGER'S 1,000 ML IV SCH (10:41)
[2019-11-15] MEDS: CITALOPRAM 20 MG TAB PO SCH (21:09)
[2019-11-16] MEDS: cefOXitin 2,000 MG in DEXTROSE 5% 50 ML IV SCH ×2 (05:19→09:07)
[2019-11-16] MEDS: OXYCODONE/ACETAMINOPHEN 5mg/325mg TAB PO PRN (05:19)
--- NOTE | 2019-11-16 06:40 | Electrocardiogram Report ---
Test Reason : Blood Pressure : / mmHG Vent. Rate : 083 BPM Atrial Rate : 083 BPM P-R Int : 152 ms QRS Dur : 076 ms QT Int : 364 ms P-R-T Axes : 068 041 043 degrees QTc Int : 427 ms Normal sinus rhythm Normal ECG No previous ECGs available Confirmed by Dheeraj Rene ([id number]) on 11/16/2019 6:39:43 AM Referred By: Sharron Altman Confirmed By:Dheeraj Rene
[2019-11-16] MEDS: LACTOBACILLUS ACIDOPHILUS (FLORANEX) TAB PO SCH (08:19)
--- NOTE | 2019-11-16 11:49 | Surgery Progress Note ---
Date of Service S/P laparosocpic appendectomy, POD 2 pt is doing better, less abdominal pain, no fever, JP30ml November 16, 2019 Assessment & Plan (1) Acute appendicitis: doing fine, pt wants to go home today, with DANI drainage, the post-op care instruction was given, Subjective Pt feeling okay today. Has a little more soreness than she expected, but it is getting better and more managable. She is tolerating a diet without issues. Physical Exam Constitutional: WD/WN, vitals as above well developed and well nourished Eyes: PERRL, conjunctivae normal, anicteric sclerae ENMT: external ear and nose normal, oropharynx normal Neck: trachea midline, no thyromegaly Respiratory: normal respiratory effort, lungs clear to auscultation Cardiovascular: RRR, no murmur, no edema Gastrointestinal (Abdomen): Percussion/Palpation: abdomen soft all incisions heal well, no redness, DANI intact, no distend Musculoskeletal: no cyanosis or clubbing, extremities motor strength 5/5 Skin: no rashes, warm and dry Neurologic: patellar DTR's 2+ bilat, sensation intact Psychiatric: Orientation: alert and oriented x 3 Results & Data Vital Signs (Past 12 Hours) Vital Signs Temp Pulse Resp BP Pulse Ox 11/16/19 07:28 36.7 C 66 16 101/67 95 (1) Acute appendicitis Acute appendicitis type: unspecified acute appendicitis type Qualified Code(s): K35.80 - Unspecified acute appendicitis
--- NOTE | 2019-11-22 11:52 | Discharge Summary ---
Date of Service November 22, 2019 Admission HPI Per Admitting Provider This is a 39yF with no significant PMH who presents to the [facility] ED on 11/14/19 with complaints of abdominal pain. The patient reports her pain started 3 days ago and was associated with nausea and abdominal bloat. She thought it was gas pains, but was unable to pass flatus or burp to relieve it. Yesterday her nausea subsided some, but her pain remained persistent and was located more in the right lower abdomen. She could not get comfortable and due to the severity of the pain she reported to the ED this AM. In the ED patient's WBC: 11 and she underwent a ct a/p that revealed findings concerning for acute appendicitis with a 2cm periappendiceal tip abscess. Patient endorses low grade temps and chills and has no appetite. She denies any vomiting, change in bowel habits, chest pain or shortness of breath. She last ate some toast and rotisserie chicken around 5pm last night. She has not had any prior surgeries to her abdomen. Principal Diagnosis acute appendicitis Discharge Data Allergies Allergy/AdvReac Type Severity Reaction Status Date / Time Penicillins Allergy Intermediate RASH Verified 11/20/19 13:41 Consultations 11/14/19 08:10 ED Decision to Admit Stat Procedures Performed Operation Date: 11/14/19 12:30 Actual Procedures p Laparoscopic Appendectomy(Not Applicable) - Bon Burnett MD Ordered Studies 11/14/19 06:37 CT abd pelvis IV con only Stat Total Time Total Time Spent Total Time Spent (In Minutes): 29 minutes Discharge Plan Discharge Items Patient Disposition: Home - Self-Care Reason For Visit: right side flank/abd pain Discharge Diagnosis: laparoscopic appendectomy Activity: Per Instructions section Lifting: No more than 10 pounds Bathing Comment: may shower starting 11/15/19; no soaking in tubs Exercise/Sports: Wait until after follow-up appointment Driving/Machine Use: Resume 3 days after discharge Non-emergency contact: Surgeon Call non-emergency contact if: you have any medication questions, your symptoms worsen, your pain is not controlled, your pain is worsening, your pain is concerning for you, you have a fever, your temperature is above 101.5, your wound has increased redness, your wound has increased drainage and your wound pain has increased Follow-up/Referrals: Bon Burnett MD [Surgeon] - (Please call to schedule follow up in clinic within 1 week) Andres Montemayor MD [Primary Care Provider] - Diet: Regular Addtl Attending Provider Instructions: Please care for your surgical drain as instructed prior to discharge from the hospital. You may empty it 2-3 times per day, as needed. Please call to schedule follow up in clinic next week for drain removal. Pending Studies at Discharge: Yes Studies:: surgical pathology Stand-Alone Forms: [facility] Medications and DC Order Prescriptions: New oxycodone-acetaminophen [Percocet] 5-325 mg tablet 1 - 2 tab PO .q4-6h PRN (Reason: pain, for initial therapy, max 6 tabs per day) Qty: 12 RF: 0 ciprofloxacin HCl [Cipro] 500 mg tablet 500 mg PO BID Qty: 10 RF: 0 Continued Lacto.acidophilus-Bif.animalis 31 billion cell capsule 1 cap PO UD RF: 0 cholecalciferol (vitamin D3) 25 mcg (1,000 unit) tablet 1,000 unit PO DAILY RF: 0 ferrous gluconate 240 mg (27 mg iron) tablet 240 mg PO UD RF: 0 ascorbic acid (vitamin C) 500 mg tablet 500 mg PO DAILY RF: 0 citalopram 10 mg tablet 10 mg PO DAILY RF: 0 Discharge Orders: Discharge Order (Routine); Ordered 11/16/19 Ordered By: Disha Cody Admission Data Admit Date/Time: 11/14/19 13:47 Attending Provider: Bon Burnett Admit Provider: Bon Burnett Primary Care Provider: Andres Montemayor Other Providers: Bon Burnett Other Interventions: Discharge Summary Assessment (RN) Last Done: 11/16/19 11:55 DC Date/Time DO NOT enter until pt leaves facility: 11/16/19 12:47 Coding Level of Care Code D/C Day Management <30 mins
== END 2019-11-16 12:47 | disposition home or self-care (01) ==
LOC: ED 06:03 → 3N 09:58 → ASU 09:58